=== PATIENT | female | born 1965 | race Hispanic/Latino ===

== ENCOUNTER 2017-06-05 13:05 | Day surgery (SDC) | payer OTHER ==
[2017-06-05 13:51] VITALS: BMI 23.0
[2017-06-05] MEDS ORDERED: Rocuronium 10 mg/ml (10 ml) ONE (15:14)
[2017-06-05] MEDS ORDERED: Midazolam 2 MG/2 ML VIAL ONE (15:14)
[2017-06-05] MEDS ORDERED: Succinylcholine Chloride 20 mg/ml Syr (5 ml) IV ONE (15:14)
[2017-06-05] MEDS ORDERED: Propofol 10 mg/ml Inj (20 ML) ONE (15:14)
[2017-06-05 16:28] VITALS: O2SAT 100
[2017-06-05] MEDS ORDERED: Neostigmine Methylsulfate 3mg/3ml Syringe IV ONE (17:34)
[2017-06-05 18:12] VITALS: TEMP 99.1
[2017-06-05 18:19] VITALS: BP 134/75
[2017-06-05 18:30] VITALS: PULSE 90
[2017-06-05 18:37] VITALS: RESP 25
--- NOTE | 2017-06-06 16:42 | RAD ---
PROCEDURE: Intraoperative Fluoroscopy. HISTORY: GASTRIC CA,COMMON DUCT STRICTURE FINDINGS: Fluoroscopic assistance was provided for ERCP. Follow-up stent placement common bile duct. Please refer to the operative report from during the procedure: 66.0 seconds.
--- NOTE | 2017-06-06 16:44 | RAD ---
PROCEDURE: Intraoperative Fluoroscopy. HISTORY: GASTRIC CA/DUODENAL STRICTURE FINDINGS: Fluoroscopic assistance was provided for ERCP and stent placement duodenal stent placement. Please refer to the operative report from during the procedure: 40.0 seconds.
== END 2017-06-05 18:30 | disposition short-term general hospital (02) ==
LOC: C.ENDO 13:05
PROVIDERS: ATTEND Internal Medicine
DX: C16.9 Malignant neoplasm of stomach, unspecified (principal); K31.5 Obstruction of duodenum
CPT/HCPCS: 36415; 43262; 47538; 76000; 86850; 86870; 86900; 86920; 86922; C1876; J2250; J2704; J2710; J3010; J7040